=== PATIENT | female | born 1935 | race Caucasian/White ===

== ENCOUNTER 2017-06-12 18:04 | Emergency (ER) | payer OTHER ==
[~2017-06-12] VITALS: Ht 162.6 cm; Wt 90.3 kg
[~2017-06-12 18:04] MED LIST: ACCUPRIL20 MG PO; ACCUPRIL40 MG PO; ATORVASTATIN CA40 MG PO; BRILINTA90 MG PO; CATAPRES0.1 MG PO; CYMBALTA30 MG PO; DAILY VALUE1 EACH PO; Depakote PO; ELAVIL10 MG PO; Fish Oil PO; Flonase BOTH NARES; HYDROCHLOROTH12.5 M3 PO; KlonoPIN PO; LASIX20 MG PO; LEVAQUIN750 MG PO; LEVOTHYROXINE50 MCG PO; LEVOTHYROXINE88 MCG PO; LISINOPRIL5 MG PO; LO-DOSE ASPIRIN81 M1 PO; LOPRESSOR25 MG PO; LORTAB 5-325 M1 EACH PO; LOSARTAN POTASS50 MG PO; MELOXICAM15 MG PO; MOBIC15 MG PO; MOBIC7.5 MG PO; NEURONTIN100 MG PO; NIFEDIAC CC60 MG PO; NIFEDIPINE ER60 MG PO; Normodyne,Trandate PO; OLEPTRO ER300 MG PO; OMEPRAZOLE20 MG PO; PRAVASTATIN SOD40 MG PO; PRILOSEC40 MG PO; Procardia XL,Adalat PO; ROPINIROLE HC0.25 MG PO; SENOKOT,SENN1 TABLET PO; ST. JOSEPH ASPI81 MG PO; STOOL SOFTENER100 M1 PO; VENLAFAXINE HC150 M1 PO; VITAMIN D31000 UNI2 PO; ZOLPIDEM TARTRA10 MG PO
[2017-06-12 18:56] LABS: BASOPHIL (%) 0.5 % (0-1); BASOPHIL COUNT 0.1 K/uL (0-0.1); EOSINOPHIL COUNT 0.4 K/uL (0-0.3); HEMATOCRIT 38.8 % (36.0-46.0); HEMOGLOBIN 12.5 G/DL (11.9-15.5); IMMATURE GRANULOCYTE (%) 0.5 % (0.0-0.7); LYMPHOCYTE (%) 23.9 % (15-42); LYMPHOCYTE COUNT 2.6 K/uL (1.0-2.8); MCH 31.2 PG (29.0-34.0); MCHC 32.2 G/DL (30.0-36.0); MCV 96.8 FL (83-99); MONOCYTE (%) 9.1 % (3-12); NEUTROPHIL COUNT 6.8 K/uL (1.8-6.4); PLATELET COUNT 251 K/uL (156-360); RBC DIS.WIDTH-CV 14.2 % (11.8-14.6); RBC DIS.WIDTH-SD 50.6 % (39-53); RED BLOOD COUNT 4.01 M/uL (3.80-5.20)
[2017-06-12 19:06] LABS: CHLORIDE 102 mEq/L (99-109); POTASSIUM 4.5 mEq/L (3.7-5.4); SODIUM 140 mEq/L (136-147)
[2017-06-12 19:08] LABS: GLUCOSE 123 mg/dL (70-99)
[2017-06-12 19:12] LABS: CREATININE 1.5 mg/dL (0.6-1.3); GFR ESTIMATE (CALCULATED) 35 mL/min/
[2017-06-12 19:13] LABS: UREA NITROGEN (BUN) 33 mg/dL (9-23)
[2017-06-12 20:00] VITALS: BP 117/69
== END 2017-06-12 20:09 | disposition home or self-care (01) ==
LOC: EME 18:04
PROVIDERS: Physician Assistant
DX: J06.9 Acute upper respiratory infection, unspecified (principal); K21.9 Gastro-esophageal reflux disease without esophagitis; I10 Essential (primary) hypertension; I25.2 Old myocardial infarction; Z87.891 Personal history of nicotine dependence; Z88.5 Allergy status to narcotic agent; Z88.6 Allergy status to analgesic agent; Z91.041 Radiographic dye allergy status
CPT/HCPCS: 71046; 80048; 85025; 94640; 99281; 99285

== ENCOUNTER 2017-06-16 09:06 | Day surgery (SDC) | payer OTHER ==
[~2017-06-16] VITALS: Ht 162.6 cm; Wt 89.8 kg
== END 2017-06-16 10:35 | disposition home or self-care (01) ==
LOC: PAIN 09:06 → SDC 09:45 → PAIN 09:45
DX: M53.3 Sacrococcygeal disorders, not elsewhere classified (principal); M46.1 Sacroiliitis, not elsewhere classified; M47.816 Spondylosis without myelopathy or radiculopathy, lumbar region; G89.29 Other chronic pain; I10 Essential (primary) hypertension; E78.5 Hyperlipidemia, unspecified; E03.9 Hypothyroidism, unspecified; Z87.891 Personal history of nicotine dependence; Z79.82 Long term (current) use of aspirin; Z95.5 Presence of coronary angioplasty implant and graft
CPT/HCPCS: J1030; J2250; S0020

== ENCOUNTER 2017-07-14 09:44 | Inpatient (IN) | payer OTHER ==
[~2017-07-14] VITALS: Ht 162.6 cm; Wt 91.0 kg
[2017-07-14 10:31] LABS: BASOPHIL (%) 0.7 % (0-1); BASOPHIL COUNT 0.1 K/uL (0-0.1); EOSINOPHIL (%) 4.1 % (0-5); EOSINOPHIL COUNT 0.4 K/uL (0-0.3); HEMOGLOBIN 12.6 G/DL (11.9-15.5); IMMATURE GRANULOCYTE (%) 0.3 % (0.0-0.7); LYMPHOCYTE (%) 30.5 % (15-42); LYMPHOCYTE COUNT 3.1 K/uL (1.0-2.8); MCH 31.3 PG (29.0-34.0); MCHC 33.2 G/DL (30.0-36.0); MCV 94.3 FL (83-99); MONOCYTE (%) 7.7 % (3-12); MONOCYTE COUNT 0.8 K/uL (0-0.8); NEUTROPHIL (%) 56.7 % (45-76); NEUTROPHIL COUNT 5.8 K/uL (1.8-6.4); PLATELET COUNT 245 K/uL (156-360); RBC DIS.WIDTH-CV 13.9 % (11.8-14.6); RBC DIS.WIDTH-SD 48.2 % (39-53); RED BLOOD COUNT 4.03 M/uL (3.80-5.20); WHITE BLOOD COUNT 10.2 K/uL (4.1-10.2)
[2017-07-14 10:39] LABS: AMYLASE 40 IU/L (1-118); CHLORIDE 107 mEq/L (99-109); INTER. NORMALIZED RATIO 1.1; POTASSIUM 4.7 mEq/L (3.7-5.4); SODIUM 142 mEq/L (136-147)
[2017-07-14 10:41] LABS: GLUCOSE 113 mg/dL (70-99); PTT 27.6 SEC (25-37)
[2017-07-14 10:44] LABS: SERUM ETHYL ALCOHOL < 10 mg/dL
[2017-07-14 10:45] LABS: CREATININE 1.5 mg/dL (0.6-1.3); GFR ESTIMATE (CALCULATED) 35 mL/min/
[2017-07-14 10:46] LABS: UREA NITROGEN (BUN) 36 mg/dL (9-23)
[2017-07-14 10:48] LABS: LIPASE 35 U/L (1.0-51.0)
[2017-07-14 10:52] LABS: TROP-I INTERPRETATION NEGATIVE; TROPONIN-I 0.03 ng/mL (0.0-0.30)
[2017-07-14] MEDS ORDERED: TRAZODONE HCL50 MG PO (11:44)
[2017-07-14] MEDS ORDERED: DULOXETINE HCL30 MG PO (11:44)
[2017-07-14] MEDS ORDERED: CALCITRIOL0.25 MCG PO (11:44)
[2017-07-14 12:47] LABS: APPEARANCE CLEAR ((CLEAR)); BILIRUBIN NEGATIVE; BLOOD NEGATIVE; COLOR YELLOW ((YELLOW)); GLUCOSE (STRIP) NEGATIVE; KETONES NEGATIVE; LEUKOCYTES TRACE; NITRITE NEGATIVE; PROTEIN (STRIP) NEGATIVE; SPECIFIC GRAVITY 1.019 (1.000-1.030); UROBILINOGEN 0.2 MG/DL (0.2-1.0)
[2017-07-14 12:50] LABS: BACTERIA NONE SEEN /HPF; EPITHELIAL CELLS RARE /HPF; MUCUS NONE SEEN /LPF; RED BLOOD CELLS 0-5 /HPF (0-5); UCUL ADDED? NO; WHITE BLOOD CELLS 0-5 /HPF (0-5)
[2017-07-14 12:58] LABS: HEMATOCRIT 37.7 % (36.0-46.0); HEMOGLOBIN 12.8 G/DL (11.9-15.5); MCH 31.9 PG (29.0-34.0); PLATELET COUNT 246 K/uL (156-360); RBC DIS.WIDTH-CV 13.9 % (11.8-14.6); RBC DIS.WIDTH-SD 48.5 % (39-53); RED BLOOD COUNT 4.01 M/uL (3.80-5.20); WHITE BLOOD COUNT 11.4 K/uL (4.1-10.2)
[2017-07-14 13:09] LABS: ALBUMIN 3.8 g/dL (3.2-4.8); CHLORIDE 107 mEq/L (99-109); POTASSIUM 4.4 mEq/L (3.7-5.4); SODIUM 140 mEq/L (136-147)
[2017-07-14 13:11] LABS: GLUCOSE 106 mg/dL (70-99); TOTAL PROTEIN 7.3 g/dL (6.4-8.3)
[2017-07-14 13:12] LABS: AMPHETAMINE NEGATIVE (500 ng/mL); BARBITURATES NEGATIVE (200 ng/mL); BENZODIAZEPINES NEGATIVE (150 ng/mL); BUPRENORPHINE NEGATIVE (10 ng/mL); COCAINE NEGATIVE (150 ng/mL); METHADONE NEGATIVE (200 ng/mL); METHAMPHETAMINE NEGATIVE (500 ng/mL); OPIATES (MORPHINE) NEGATIVE (100 ng/mL); OXYCODONE NEGATIVE (100 ng/mL); PHENCYCLIDINE NEGATIVE (25 ng/mL); PROPOXYPHENE NEGATIVE (300 ng/mL); THC CANNABINOIDS NEGATIVE (50 ng/mL); TRICYCLIC ANTIDEPRESSANTS NEGATIVE (300 ng/mL)
[2017-07-14 13:13] LABS: TOTAL BILIRUBIN 0.6 mg/dL (0.0-1.0)
[2017-07-14 13:14] LABS: ALKALINE PHOSPHATASE 44 IU/L (3-129)
[2017-07-14 13:15] LABS: CREATININE 1.4 mg/dL (0.6-1.3); GFR ESTIMATE (CALCULATED) 38 mL/min/
[2017-07-14 13:16] LABS: AST (GOT) 21 IU/L (2-34); UREA NITROGEN (BUN) 35 mg/dL (9-23)
[2017-07-14 13:18] LABS: ALT (GPT) 16 IU/L (3-49)
[2017-07-14 13:19] LABS: THYROTROPIN (TSH) 1.2 MIU/L (0.4-5.5)
[2017-07-14 13:23] LABS: TROP-I INTERPRETATION NEGATIVE; TROPONIN-I 0.03 ng/mL (0.0-0.30)
[2017-07-14 13:47] LABS: HDL CHOLESTEROL 50 MG/DL (Desirable>=50); LDL CHOLESTEROL 64 mg/dL (Desirable<100); NON-HDL CHOLESTEROL 98 mg/dL (Desirable<160); TOTAL CHOLESTEROL 148 mg/dL (Desirable<200); TRIGLYCERIDES 172 MG/DL (Normal: <150)
[2017-07-14 13:58] LABS: FOLIC ACID (FOLATE) > 22.0 NG/ML (5.0-22.0)
[2017-07-14 14:45] LABS: HEMOGLOBIN A1c (GLYCOHEMOGLOB) 6.1 % (Below 5.7)
[2017-07-14 14:59] VITALS: BP 140/80
[2017-07-14 16:50] LABS: INTER. NORMALIZED RATIO 1.1
[2017-07-14 16:53] LABS: PTT 26.5 SEC (25-37)
[2017-07-14 20:00] VITALS: BP 144/68
[2017-07-14 22:22] LABS: TROP-I INTERPRETATION NEGATIVE; TROPONIN-I 0.04 ng/mL (0.0-0.30)
[2017-07-15 00:31] VITALS: BP 120/82
[2017-07-15 02:15] LABS: INTER. NORMALIZED RATIO 1.3
[2017-07-15 02:43] LABS: PTT ND SEC (25-37)
[2017-07-15 03:30] LABS: HEMATOCRIT 34.8 % (36.0-46.0); HEMOGLOBIN 11.7 G/DL (11.9-15.5); MCH 31.6 PG (29.0-34.0); MCHC 33.6 G/DL (30.0-36.0); MCV 94.1 FL (83-99); PLATELET COUNT 221 K/uL (156-360); WHITE BLOOD COUNT 11.6 K/uL (4.1-10.2)
[2017-07-15 03:39] VITALS: BP 160/82
[2017-07-15 08:00] VITALS: BP 168/88
[2017-07-15 12:03] VITALS: BP 144/86
[2017-07-15 16:00] VITALS: BP 132/80
[2017-07-15 20:00] VITALS: BP 106/64
[2017-07-16] VITALS: BP 104/68
[2017-07-16 04:00] VITALS: BP 118/72
[2017-07-16] MEDS ORDERED: ELIQUIS5 MG PO (07:32)
[2017-07-16] MEDS ORDERED: LOSARTAN POTASS25 MG PO (07:32)
[2017-07-16] MEDS ORDERED: LOPRESSOR50 MG PO (07:32)
[2017-07-16 07:36] VITALS: BP 120/70
== END 2017-07-16 10:22 | disposition home health service (06) | DRG 72 ==
LOC: EME 09:44 → EDOF 11:49 → 5SOUTH 11:49 → ENRESERV 11:51 → CANRESERV 11:51 → ENRESERV 12:35 → CANRESERV 12:41 → ENRESERV 12:41 → 5SOUTH 14:36
PROVIDERS: Emergency Medicine; Internal Medicine
DX: G93.40 Encephalopathy, unspecified (principal); I48.91 Unspecified atrial fibrillation; I10 Essential (primary) hypertension; D72.829 Elevated white blood cell count, unspecified; E03.9 Hypothyroidism, unspecified; I12.9 Hypertensive chronic kidney disease with stage 1 through stage 4 chronic kidney disease, or unspecified chronic kidney disease; N18.3 Chronic kidney disease, stage 3 (moderate); E78.5 Hyperlipidemia, unspecified; I25.10 Atherosclerotic heart disease of native coronary artery without angina pectoris; E66.9 Obesity, unspecified; Z68.34 Body mass index [BMI] 34.0-34.9, adult; R41.0 Disorientation, unspecified; R51 Headache; Z87.891 Personal history of nicotine dependence; Z79.899 Other long term (current) drug therapy; R29.702 NIHSS score 2; G89.29 Other chronic pain; Z79.82 Long term (current) use of aspirin; Z86.73 Personal history of transient ischemic attack (TIA), and cerebral infarction without residual deficits; Z95.5 Presence of coronary angioplasty implant and graft
CPT/HCPCS: 70450; 70551; 71045; 80048; 80053; 80061; 81003; 82140; 82150; 82607; 82746; 82948; 83036; 83690; 84443; 84484; 85025; 85027; 85610; 85730; 86850; 86900; 86901; 92507 GN; 92523 GN; 93005; 93306; 93880; 99281; 99285; G0480; J1644; J7030

== ENCOUNTER 2017-08-18 11:12 | Day surgery (SDC) | payer OTHER ==
[~2017-08-18] VITALS: Ht 162.6 cm; Wt 90.7 kg
[~2017-08-18 11:12] MED LIST changes: +CALCITRIOL0.25 MCG PO; +DULOXETINE HCL30 MG PO; +ELIQUIS5 MG PO; +LOPRESSOR50 MG PO; +LOSARTAN POTASS25 MG PO; +TRAZODONE HCL50 MG PO
[2017-08-18] MEDS ORDERED: OXYCONTIN10 MG PO (12:00)
== END 2017-08-18 13:00 | disposition home or self-care (01) ==
LOC: PAIN 11:12 → SDC 11:30 → PAIN 13:00
DX: M51.16 Intervertebral disc disorders with radiculopathy, lumbar region (principal); M48.061 Spinal stenosis, lumbar region without neurogenic claudication; M46.96 Unspecified inflammatory spondylopathy, lumbar region; G89.29 Other chronic pain; I10 Essential (primary) hypertension; E03.9 Hypothyroidism, unspecified; K21.9 Gastro-esophageal reflux disease without esophagitis; E66.09 Other obesity due to excess calories; Z68.34 Body mass index [BMI] 34.0-34.9, adult; I48.91 Unspecified atrial fibrillation; Z87.891 Personal history of nicotine dependence; Z79.82 Long term (current) use of aspirin; Z79.891 Long term (current) use of opiate analgesic; Z79.01 Long term (current) use of anticoagulants
CPT/HCPCS: J1100; J2250

== ENCOUNTER 2017-09-03 07:06 | Inpatient (IN) | payer OTHER ==
[~2017-09-03] VITALS: Ht 165.1 cm; Wt 95.9 kg
[~2017-09-03 07:06] MED LIST changes: +OXYCONTIN10 MG PO
[2017-09-03 07:53] LABS: HEMATOCRIT 34.4 % (36.0-46.0); HEMOGLOBIN 11.5 G/DL (11.9-15.5); MCH 31.4 PG (29.0-34.0); MCHC 33.4 G/DL (30.0-36.0); PLATELET COUNT 231 K/uL (156-360); RBC DIS.WIDTH-CV 13.8 % (11.8-14.6); RBC DIS.WIDTH-SD 46.8 % (39-53); RED BLOOD COUNT 3.66 M/uL (3.80-5.20); WHITE BLOOD COUNT 15.8 K/uL (4.1-10.2)
[2017-09-03 08:28] LABS: ALBUMIN 3.6 G/DL (3.2-4.8); ALKALINE PHOSPHATASE 52 IU/L (3-129); ALT (GPT) 16 IU/L (3-49); AST (GOT) 18 IU/L (2-34); CHLORIDE 104 MEQ/L (99-109); CREATININE 1.3 MG/DL (0.6-1.3); GFR ESTIMATE (CALCULATED) 42 mL/min/; GLUCOSE 126 mg/dL (70-99); LIPASE 30 U/L (1.0-51.0); POTASSIUM 4.1 MEQ/L (3.7-5.4); SODIUM 139 MEQ/L (136-147); TOTAL BILIRUBIN 0.8 MG/DL (0.0-1.0); TOTAL PROTEIN 6.9 G/DL (6.4-8.3); UREA NITROGEN (BUN) 28 mg/dL (9-23)
[2017-09-03 10:04] LABS: APPEARANCE CLEAR ((CLEAR)); BILIRUBIN NEGATIVE; BLOOD NEGATIVE; COLOR YELLOW ((YELLOW)); GLUCOSE (STRIP) NEGATIVE; KETONES NEGATIVE; LEUKOCYTES SMALL; NITRITE NEGATIVE; PROTEIN (STRIP) NEGATIVE; SPECIFIC GRAVITY 1.019 (1.000-1.030); UROBILINOGEN 0.2 MG/DL (0.2-1.0)
[2017-09-03] MEDS ORDERED: HYDROCODON-ACE1 EAC7 PO (10:11)
[2017-09-03] MEDS ORDERED: LO-DOSE ASPIRIN81 M1 PO (10:12)
[2017-09-03] MEDS ORDERED: BENZONATATE200 MG PO (10:13)
[2017-09-03] MEDS ORDERED: LORATADINE10 M2 PO (10:16)
[2017-09-03] MEDS ORDERED: COZAAR25 MG PO (10:16)
[2017-09-03 10:48] LABS: BACTERIA NONE SEEN /HPF; EPITHELIAL CELLS 3+ /HPF; MUCUS TRACE /LPF; RED BLOOD CELLS 0-5 /HPF (0-5); UCUL ADDED? YES
[2017-09-03 12:28] VITALS: BP 146/68
[2017-09-03 16:44] VITALS: BP 145/80
[2017-09-03 19:40] VITALS: BP 137/67
[2017-09-03 23:24] VITALS: BP 123/57
[2017-09-04 03:39] VITALS: BP 117/63
[2017-09-04 06:35] LABS: HEMATOCRIT 31.7 % (36.0-46.0); MCH 31.2 PG (29.0-34.0); MCHC 31.5 G/DL (30.0-36.0); PLATELET COUNT 191 K/uL (156-360); RBC DIS.WIDTH-CV 13.9 % (11.8-14.6); RBC DIS.WIDTH-SD 50.6 % (39-53); RED BLOOD COUNT 3.21 M/uL (3.80-5.20); WHITE BLOOD COUNT 17.8 K/uL (4.1-10.2)
[2017-09-04 06:41] LABS: MCV 98.8 FL (83-99)
[2017-09-04 07:00] LABS: CHLORIDE 109 MEQ/L (99-109); CREATININE 1.3 MG/DL (0.6-1.3); GFR ESTIMATE (CALCULATED) 42 mL/min/; GLUCOSE 122 mg/dL (70-99); POTASSIUM 4.4 MEQ/L (3.7-5.4); SODIUM 141 MEQ/L (136-147); UREA NITROGEN (BUN) 23 mg/dL (9-23)
[2017-09-04 07:41] VITALS: BP 124/62
[2017-09-04 11:47] VITALS: BP 114/56
[2017-09-04 16:26] VITALS: BP 114/76
[2017-09-04 19:54] VITALS: BP 112/63
[2017-09-05] VITALS (7 sets, daily range): BP systolic 106–162; BP diastolic 53–87
[2017-09-05 06:23] LABS: BASOPHIL (%) 0.3 % (0-1); BASOPHIL COUNT 0.1 K/uL (0-0.1); EOSINOPHIL (%) 0.8 % (0-5); EOSINOPHIL COUNT 0.1 K/uL (0-0.3); HEMATOCRIT 29.9 % (36.0-46.0); HEMOGLOBIN 9.2 G/DL (11.9-15.5); IMMATURE GRANULOCYTE (%) 0.5 % (0.0-0.7); LYMPHOCYTE (%) 13.9 % (15-42); LYMPHOCYTE COUNT 2.2 K/uL (1.0-2.8); MCH 30.4 PG (29.0-34.0); MCHC 30.8 G/DL (30.0-36.0); MCV 98.7 FL (83-99); MONOCYTE COUNT 0.9 K/uL (0-0.8); NEUTROPHIL (%) 78.5 % (45-76); NEUTROPHIL COUNT 12.3 K/uL (1.8-6.4); PLATELET COUNT 177 K/uL (156-360); RBC DIS.WIDTH-CV 13.8 % (11.8-14.6); RBC DIS.WIDTH-SD 49.5 % (39-53); RED BLOOD COUNT 3.03 M/uL (3.80-5.20); WHITE BLOOD COUNT 15.7 K/uL (4.1-10.2)
[2017-09-05 06:46] LABS: CHLORIDE 112 MEQ/L (99-109); CREATININE 1.3 MG/DL (0.6-1.3); GFR ESTIMATE (CALCULATED) 42 mL/min/; GLUCOSE 142 mg/dL (70-99); POTASSIUM 4.2 MEQ/L (3.7-5.4); SODIUM 143 MEQ/L (136-147); UREA NITROGEN (BUN) 21 mg/dL (9-23)
[2017-09-06 01:57] LABS: BASOPHIL (%) 0.2 % (0-1); EOSINOPHIL (%) 0.6 % (0-5); EOSINOPHIL COUNT 0.1 K/uL (0-0.3); HEMATOCRIT 31.7 % (36.0-46.0); IMMATURE GRANULOCYTE (%) 0.6 % (0.0-0.7); LYMPHOCYTE (%) 8.3 % (15-42); LYMPHOCYTE COUNT 1.2 K/uL (1.0-2.8); MCH 30.8 PG (29.0-34.0); MCHC 31.5 G/DL (30.0-36.0); MCV 97.5 FL (83-99); MONOCYTE COUNT 0.9 K/uL (0-0.8); NEUTROPHIL (%) 84.3 % (45-76); NEUTROPHIL COUNT 12.5 K/uL (1.8-6.4); PLATELET COUNT 195 K/uL (156-360); RBC DIS.WIDTH-CV 14.1 % (11.8-14.6); RBC DIS.WIDTH-SD 49.9 % (39-53); RED BLOOD COUNT 3.25 M/uL (3.80-5.20); WHITE BLOOD COUNT 14.9 K/uL (4.1-10.2)
[2017-09-06 02:12] LABS: CHLORIDE 114 mEq/L (99-109); POTASSIUM 4.2 mEq/L (3.7-5.4); SODIUM 144 mEq/L (136-147)
[2017-09-06 02:13] LABS: GLUCOSE 128 mg/dL (70-99)
[2017-09-06 02:17] LABS: CREATININE 1.4 mg/dL (0.6-1.3); GFR ESTIMATE (CALCULATED) 38 mL/min/
[2017-09-06 02:18] LABS: UREA NITROGEN (BUN) 21 mg/dL (9-23)
[2017-09-06 03:24] VITALS: BP 135/78
[2017-09-06 07:41] VITALS: BP 138/77
[2017-09-06 15:27] LABS: INTER. NORMALIZED RATIO 2.3
[2017-09-06 15:30] LABS: PTT 96.2 SEC (25-37)
[2017-09-06 15:38] VITALS: BP 134/68
[2017-09-06 19:23] VITALS: BP 149/71
[2017-09-06 22:19] LABS: INTER. NORMALIZED RATIO 2.2
[2017-09-06 22:29] LABS: PTT 69.8 SEC (25-37)
[2017-09-06 23:08] VITALS: BP 135/65
[2017-09-07] VITALS (8 sets, daily range): BP systolic 129–192; BP diastolic 68–116
[2017-09-07 05:44] LABS: BASOPHIL (%) 0.4 % (0-1); BASOPHIL COUNT 0.1 K/uL (0-0.1); EOSINOPHIL (%) 2.6 % (0-5); EOSINOPHIL COUNT 0.4 K/uL (0-0.3); HEMATOCRIT 29.9 % (36.0-46.0); HEMOGLOBIN 9.6 G/DL (11.9-15.5); IMMATURE GRANULOCYTE (%) 0.6 % (0.0-0.7); LYMPHOCYTE (%) 19.3 % (15-42); MCHC 32.1 G/DL (30.0-36.0); MCV 96.5 FL (83-99); MONOCYTE (%) 7.1 % (3-12); MONOCYTE COUNT 1.1 K/uL (0-0.8); PLATELET COUNT 164 K/uL (156-360); RBC DIS.WIDTH-CV 14.3 % (11.8-14.6); RBC DIS.WIDTH-SD 50.5 % (39-53); WHITE BLOOD COUNT 15.7 K/uL (4.1-10.2)
[2017-09-07 05:49] LABS: CHLORIDE 118 mEq/L (99-109); POTASSIUM 4.1 mEq/L (3.7-5.4); SODIUM 147 mEq/L (136-147)
[2017-09-07 05:51] LABS: GLUCOSE 121 mg/dL (70-99)
[2017-09-07 05:55] LABS: CREATININE 1.3 mg/dL (0.6-1.3); GFR ESTIMATE (CALCULATED) 42 mL/min/
[2017-09-07 05:56] LABS: UREA NITROGEN (BUN) 26 mg/dL (9-23)
[2017-09-07 15:10] LABS: C-REACTIVE PROTEIN 251.3 MG/L (0-10)
[2017-09-07 16:04] LABS: THYROTROPIN (TSH) 1.8 MIU/L (0.4-5.5)
[2017-09-08 04:13] VITALS: BP 178/86
[2017-09-08 06:09] LABS: BASOPHIL (%) 0.5 % (0-1); BASOPHIL COUNT 0.1 K/uL (0-0.1); EOSINOPHIL (%) 1.9 % (0-5); EOSINOPHIL COUNT 0.3 K/uL (0-0.3); HEMATOCRIT 28.2 % (36.0-46.0); HEMOGLOBIN 8.8 G/DL (11.9-15.5); IMMATURE GRANULOCYTE (%) 0.7 % (0.0-0.7); LYMPHOCYTE (%) 12.8 % (15-42); MCH 30.1 PG (29.0-34.0); MCHC 31.2 G/DL (30.0-36.0); MCV 96.6 FL (83-99); MONOCYTE (%) 7.4 % (3-12); MONOCYTE COUNT 1.2 K/uL (0-0.8); NEUTROPHIL (%) 76.7 % (45-76); NEUTROPHIL COUNT 11.9 K/uL (1.8-6.4); PLATELET COUNT 121 K/uL (156-360); RBC DIS.WIDTH-CV 14.4 % (11.8-14.6); RBC DIS.WIDTH-SD 50.8 % (39-53); RED BLOOD COUNT 2.92 M/uL (3.80-5.20); WHITE BLOOD COUNT 15.5 K/uL (4.1-10.2)
[2017-09-08 07:22] LABS: ALBUMIN 2.5 G/DL (3.2-4.8); ALT (GPT) 8 IU/L (3-49); AST (GOT) 13 IU/L (2-34); CHLORIDE 117 MEQ/L (99-109); GLUCOSE 131 mg/dL (70-99); SODIUM 145 MEQ/L (136-147); TOTAL BILIRUBIN 0.9 MG/DL (0.0-1.0); UREA NITROGEN (BUN) 23 mg/dL (9-23)
[2017-09-08 07:29] LABS: CREATININE 0.8 MG/DL (0.6-1.3); GFR ESTIMATE (CALCULATED) > 59 mL/min/; TOTAL PROTEIN 5.3 G/DL (6.4-8.3)
[2017-09-08 07:30] LABS: ALKALINE PHOSPHATASE 159 IU/L (3-129)
[2017-09-08 08:12] VITALS: BP 172/69
[2017-09-08 11:45] VITALS: BP 145/88
[2017-09-08 14:04] LABS: CHLORIDE 115 MEQ/L (99-109); CREATININE 1.1 MG/DL (0.6-1.3); GFR ESTIMATE (CALCULATED) 51 mL/min/; GLUCOSE 118 mg/dL (70-99); POTASSIUM 3.9 MEQ/L (3.7-5.4); SODIUM 142 MEQ/L (136-147); UREA NITROGEN (BUN) 22 mg/dL (9-23)
[2017-09-08 18:27] LABS: HEMATOCRIT 27.3 % (36.0-46.0); HEMOGLOBIN 8.9 G/DL (11.9-15.5); MCHC 32.6 G/DL (30.0-36.0); MCV 95.1 FL (83-99); PLATELET COUNT 136 K/uL (156-360); RBC DIS.WIDTH-CV 14.4 % (11.8-14.6); RBC DIS.WIDTH-SD 49.7 % (39-53); RED BLOOD COUNT 2.87 M/uL (3.80-5.20); WHITE BLOOD COUNT 16.6 K/uL (4.1-10.2)
[2017-09-08 18:33] LABS: INTER. NORMALIZED RATIO 1.5
[2017-09-08 18:40] LABS: CHLORIDE 118 mEq/L (99-109); POTASSIUM 4.1 mEq/L (3.7-5.4); SODIUM 144 mEq/L (136-147)
[2017-09-08 18:42] LABS: GLUCOSE 123 mg/dL (70-99); PTT 27.3 SEC (25-37)
[2017-09-08 18:46] LABS: CREATININE 1.4 mg/dL (0.6-1.3); GFR ESTIMATE (CALCULATED) 38 mL/min/
[2017-09-08 18:47] LABS: UREA NITROGEN (BUN) 24 mg/dL (9-23)
[2017-09-08 20:15] VITALS: BP 141/86
[2017-09-09] VITALS (8 sets, daily range): BP systolic 139–184; BP diastolic 65–94
[2017-09-09 06:26] LABS: BASOPHIL (%) 0.4 % (0-1); BASOPHIL COUNT 0.1 K/uL (0-0.1); EOSINOPHIL (%) 0.5 % (0-5); EOSINOPHIL COUNT 0.1 K/uL (0-0.3); HEMATOCRIT 28.4 % (36.0-46.0); HEMOGLOBIN 9.1 G/DL (11.9-15.5); IMMATURE GRANULOCYTE (%) 1.1 % (0.0-0.7); LYMPHOCYTE COUNT 2.1 K/uL (1.0-2.8); MCV 96.6 FL (83-99); MONOCYTE (%) 10.3 % (3-12); MONOCYTE COUNT 1.4 K/uL (0-0.8); NEUTROPHIL (%) 72.7 % (45-76); NEUTROPHIL COUNT 10.2 K/uL (1.8-6.4); PLATELET COUNT 177 K/uL (156-360); RBC DIS.WIDTH-CV 14.4 % (11.8-14.6); RBC DIS.WIDTH-SD 50.4 % (39-53); RED BLOOD COUNT 2.94 M/uL (3.80-5.20)
[2017-09-09 13:01] LABS: CHLORIDE 112 MEQ/L (99-109); CREATININE 1.1 MG/DL (0.6-1.3); GFR ESTIMATE (CALCULATED) 51 mL/min/; GLUCOSE 106 mg/dL (70-99); POTASSIUM 4.4 MEQ/L (3.7-5.4); SODIUM 142 MEQ/L (136-147); UREA NITROGEN (BUN) 24 mg/dL (9-23)
[2017-09-09 14:37] LABS: BICARBONATE 16.3 mEq/L (22-26); CARBOXY HGB 1.1 % (0-5); COMMENTS - BLOOD GASES A+C+; DEVICE RA; FI02 21 %; METHEMOGLOBIN 0.4 % (0-1.5); PCO2 27 mm Hg (35-45); PO2 69 mm Hg (80-100); SITE LR; TOTAL RESP RATE 22 resp/min; pH 7.39 (7.35-7.45)
[2017-09-09 14:38] LABS: BASE EXCESS -7.6 mEq/L (-3 to +3)
[2017-09-10 04:46] VITALS: BP 172/88
[2017-09-10 06:16] LABS: BASOPHIL (%) 0.4 % (0-1); BASOPHIL COUNT 0.1 K/uL (0-0.1); EOSINOPHIL (%) 0.4 % (0-5); EOSINOPHIL COUNT 0.1 K/uL (0-0.3); HEMATOCRIT 25.3 % (36.0-46.0); HEMOGLOBIN 8.3 G/DL (11.9-15.5); IMMATURE GRANULOCYTE (%) 2.3 % (0.0-0.7); LYMPHOCYTE (%) 15.9 % (15-42); LYMPHOCYTE COUNT 2.3 K/uL (1.0-2.8); MCH 31.1 PG (29.0-34.0); MCHC 32.8 G/DL (30.0-36.0); MCV 94.8 FL (83-99); MONOCYTE (%) 12.2 % (3-12); MONOCYTE COUNT 1.8 K/uL (0-0.8); NEUTROPHIL (%) 68.8 % (45-76); NEUTROPHIL COUNT 10.1 K/uL (1.8-6.4); NRBC (%) 0.3 /100 WBC (0-0); PLATELET COUNT 192 K/uL (156-360); RBC DIS.WIDTH-CV 14.2 % (11.8-14.6); RBC DIS.WIDTH-SD 48.8 % (39-53); RED BLOOD COUNT 2.67 M/uL (3.80-5.20); WHITE BLOOD COUNT 14.7 K/uL (4.1-10.2)
[2017-09-10 06:38] LABS: CHLORIDE 112 MEQ/L (99-109); CREATININE 1.2 MG/DL (0.6-1.3); GFR ESTIMATE (CALCULATED) 46 mL/min/; GLUCOSE 112 mg/dL (70-99); POTASSIUM 3.8 MEQ/L (3.7-5.4); SODIUM 141 MEQ/L (136-147); UREA NITROGEN (BUN) 25 mg/dL (9-23)
[2017-09-10 07:54] VITALS: BP 135/83
[2017-09-10 10:58] VITALS: BP 144/85
[2017-09-10 12:50] LABS: HEMATOCRIT 29.4 % (36.0-46.0); HEMOGLOBIN 9.8 G/DL (11.9-15.5); MCV 93.9 FL (83-99)
[2017-09-10 16:05] VITALS: BP 144/77
[2017-09-10 19:15] VITALS: BP 136/82
[2017-09-10 23:29] VITALS: BP 136/76
[2017-09-11] VITALS (7 sets, daily range): BP systolic 89–195; BP diastolic 64–93
[2017-09-11 06:39] LABS: HEMATOCRIT 26.7 % (36.0-46.0); HEMOGLOBIN 8.6 G/DL (11.9-15.5); MCH 30.6 PG (29.0-34.0); MCHC 32.2 G/DL (30.0-36.0); NRBC (%) 0.2 /100 WBC (0-0); RBC DIS.WIDTH-CV 14.4 % (11.8-14.6); RBC DIS.WIDTH-SD 49.7 % (39-53); RED BLOOD COUNT 2.81 M/uL (3.80-5.20); WHITE BLOOD COUNT 16.3 K/uL (4.1-10.2)
[2017-09-11 06:42] LABS: PLATELET COUNT 255 K/uL (156-360)
[2017-09-11 07:04] LABS: BASOPHIL (%) 0.6 % (0-1); BASOPHIL COUNT 0.1 K/uL (0-0.1); EOSINOPHIL (%) 2.9 % (0-5); EOSINOPHIL COUNT 0.5 K/uL (0-0.3); IMMATURE GRANULOCYTE (%) 2.4 % (0.0-0.7); LYMPHOCYTE (%) 17.9 % (15-42); LYMPHOCYTE COUNT 2.9 K/uL (1.0-2.8); MONOCYTE (%) 9.6 % (3-12); MONOCYTE COUNT 1.6 K/uL (0-0.8); NEUTROPHIL (%) 66.6 % (45-76); NEUTROPHIL COUNT 10.9 K/uL (1.8-6.4)
[2017-09-12 04:36] VITALS: BP 191/94
[2017-09-12 05:55] VITALS: BP 162/77
[2017-09-12 06:12] LABS: HEMATOCRIT 25.2 % (36.0-46.0); HEMOGLOBIN 8.4 G/DL (11.9-15.5); MCH 30.9 PG (29.0-34.0); MCHC 33.3 G/DL (30.0-36.0); MCV 92.6 FL (83-99); NRBC (%) 0.5 /100 WBC (0-0); PLATELET COUNT 276 K/uL (156-360); RBC DIS.WIDTH-CV 14.3 % (11.8-14.6); RBC DIS.WIDTH-SD 47.8 % (39-53); RED BLOOD COUNT 2.72 M/uL (3.80-5.20); WHITE BLOOD COUNT 15.4 K/uL (4.1-10.2)
[2017-09-12 08:04] VITALS: BP 183/107
[2017-09-12 12:16] VITALS: BP 167/75
[2017-09-12 16:16] VITALS: BP 184/86
[2017-09-12 23:30] VITALS: BP 159/77
[2017-09-13 08:07] VITALS: BP 162/70
[2017-09-13 08:27] LABS: HEMATOCRIT 27.8 % (36.0-46.0); HEMOGLOBIN 9.3 G/DL (11.9-15.5); MCH 31.4 PG (29.0-34.0); MCHC 33.5 G/DL (30.0-36.0); MCV 93.9 FL (83-99); NRBC (%) 0.5 /100 WBC (0-0); PLATELET COUNT 344 K/uL (156-360); RBC DIS.WIDTH-CV 14.6 % (11.8-14.6); RBC DIS.WIDTH-SD 48.6 % (39-53); RED BLOOD COUNT 2.96 M/uL (3.80-5.20); WHITE BLOOD COUNT 17.6 K/uL (4.1-10.2)
[2017-09-13 09:24] LABS: CHLORIDE 108 mEq/L (99-109); POTASSIUM 3.8 mEq/L (3.7-5.4); SODIUM 142 mEq/L (136-147)
[2017-09-13 09:25] LABS: GLUCOSE 102 mg/dL (70-99)
[2017-09-13 09:29] LABS: GFR ESTIMATE (CALCULATED) 57 mL/min/
[2017-09-13 09:30] LABS: UREA NITROGEN (BUN) 18 mg/dL (9-23)
[2017-09-13 15:18] VITALS: BP 140/78
[2017-09-13 19:21] VITALS: BP 188/86
[2017-09-13 21:33] LABS: APPEARANCE SL.HAZY ((CLEAR)); BILIRUBIN NEGATIVE; BLOOD NEGATIVE; COLOR AMBER ((YELLOW)); GLUCOSE (STRIP) NEGATIVE; KETONES NEGATIVE; LEUKOCYTES NEGATIVE; NITRITE NEGATIVE; PROTEIN (STRIP) 100; SPECIFIC GRAVITY 1.029 (1.000-1.030)
[2017-09-13 21:46] LABS: BACTERIA NONE SEEN /HPF; EPITHELIAL CELLS 2+ /HPF; HYALINE CASTS 0-5 /LPF; MUCUS TRACE /LPF; RED BLOOD CELLS 0-5 /HPF (0-5); UCUL ADDED? NO; WHITE BLOOD CELLS 0-5 /HPF (0-5)
[2017-09-13 23:53] VITALS: BP 138/80
[2017-09-14 04:05] VITALS: BP 138/85
[2017-09-14 06:56] LABS: HEMATOCRIT 29.4 % (36.0-46.0); HEMOGLOBIN 9.4 G/DL (11.9-15.5); MCH 30.2 PG (29.0-34.0); MCV 94.5 FL (83-99); NRBC (%) 0.4 /100 WBC (0-0); PLATELET COUNT 348 K/uL (156-360); RBC DIS.WIDTH-CV 14.8 % (11.8-14.6); RED BLOOD COUNT 3.11 M/uL (3.80-5.20)
[2017-09-14 07:15] LABS: CHLORIDE 108 MEQ/L (99-109); GFR ESTIMATE (CALCULATED) 57 mL/min/; GLUCOSE 122 mg/dL (70-99); MAGNESIUM 1.9 mg/dl (1.3-2.7); POTASSIUM 3.5 MEQ/L (3.7-5.4); SODIUM 139 MEQ/L (136-147); UREA NITROGEN (BUN) 16 mg/dL (9-23)
[2017-09-14 07:44] VITALS: BP 135/86
[2017-09-14 10:18] VITALS: BP 164/79
[2017-09-14 15:41] VITALS: BP 130/80
[2017-09-14 19:29] VITALS: BP 134/88
[2017-09-14 23:23] VITALS: BP 160/84
[2017-09-15 07:27] LABS: CHLORIDE 107 MEQ/L (99-109); CREATININE 1.1 MG/DL (0.6-1.3); GFR ESTIMATE (CALCULATED) 51 mL/min/; GLUCOSE 99 mg/dL (70-99); POTASSIUM 3.9 MEQ/L (3.7-5.4); SODIUM 138 MEQ/L (136-147); UREA NITROGEN (BUN) 14 mg/dL (9-23)
[2017-09-15 08:31] VITALS: BP 178/93
[2017-09-15 09:32] VITALS: BP 128/71
[2017-09-15 11:27] VITALS: BP 138/74
[2017-09-15 16:38] VITALS: BP 129/74
[2017-09-15 19:50] VITALS: BP 138/76
[2017-09-15 23:27] VITALS: BP 197/97
[2017-09-16 04:16] VITALS: BP 148/83
[2017-09-16 07:56] VITALS: BP 136/92
[2017-09-16] MEDS ORDERED: LASIX20 MG PO (11:12)
[2017-09-16] MEDS ORDERED: K-DUR20 MEQ PO (11:13)
[2017-09-16 12:37] VITALS: BP 160/84
== END 2017-09-16 13:52 | disposition home health service (06) | DRG 330 ==
LOC: EME 07:06 → EDOF 09:37 → 3EAST 09:37 → ENRESERV 09:42 → EDOF 10:35 → ENRESERV 10:39 → EDOF 11:00 → ENRESERV 11:07 → 3EAST 11:43
PROVIDERS: Hospitalist; Internal Medicine; Physician Assistant; Physician Assistant Medical; Physician Assistant Surgical; Student in an Organized Health Care Education/Training Program; Surgery
DX: K57.20 Diverticulitis of large intestine with perforation and abscess without bleeding (principal); I48.2 Chronic atrial fibrillation; I48.1 Persistent atrial fibrillation; K56.7 Ileus, unspecified; I25.10 Atherosclerotic heart disease of native coronary artery without angina pectoris; I12.9 Hypertensive chronic kidney disease with stage 1 through stage 4 chronic kidney disease, or unspecified chronic kidney disease; N18.3 Chronic kidney disease, stage 3 (moderate); E03.9 Hypothyroidism, unspecified; D63.1 Anemia in chronic kidney disease; R33.9 Retention of urine, unspecified; R82.79 Other abnormal findings on microbiological examination of urine; R41.0 Disorientation, unspecified; R60.0 Localized edema; E78.5 Hyperlipidemia, unspecified; K21.9 Gastro-esophageal reflux disease without esophagitis; M19.072 Primary osteoarthritis, left ankle and foot; E66.9 Obesity, unspecified; Z68.35 Body mass index [BMI] 35.0-35.9, adult; Z66 Do not resuscitate; Z86.73 Personal history of transient ischemic attack (TIA), and cerebral infarction without residual deficits; Z87.440 Personal history of urinary (tract) infections; Z95.5 Presence of coronary angioplasty implant and graft; Z79.01 Long term (current) use of anticoagulants; Z79.82 Long term (current) use of aspirin; Z88.5 Allergy status to narcotic agent; Z91.041 Radiographic dye allergy status
CPT/HCPCS: 36600; 71045; 73630; 74176; 80048; 80048 91; 80053; 81003; 83605; 83690; 83735; 84443; 85014; 85018; 85025; 85027; 85610; 85730; 86140; 86850; 86900; 86901; 87040; 87086; 88307; 93005; 93970; 94799; 97530 GO; 97530 GP; 99281; 99284; J0131; J0360; J0744; J1170; J1644; J1940; J2405; J2543; J3010; J7030; J7040; J7042; J7050; P9047; S0028; S0030; S0074

== ENCOUNTER 2017-09-23 07:30 | Inpatient (IN) | payer OTHER ==
[~2017-09-23] VITALS: Ht 162.6 cm; Wt 91.0 kg
[~2017-09-23 07:30] MED LIST changes: +BENZONATATE200 MG PO; +COZAAR25 MG PO; +HYDROCODON-ACE1 EAC7 PO; +K-DUR20 MEQ PO; +LORATADINE10 M2 PO
[2017-09-23 08:52] LABS: BASOPHIL (%) 1.1 % (0-1); BASOPHIL COUNT 0.1 K/uL (0-0.1); EOSINOPHIL COUNT 0.4 K/uL (0-0.3); HEMATOCRIT 30.9 % (36.0-46.0); IMMATURE GRANULOCYTE (%) 0.6 % (0.0-0.7); LYMPHOCYTE (%) 23.3 % (15-42); LYMPHOCYTE COUNT 2.9 K/uL (1.0-2.8); MCH 30.6 PG (29.0-34.0); MCHC 32.4 G/DL (30.0-36.0); MCV 94.5 FL (83-99); MONOCYTE (%) 11.3 % (3-12); MONOCYTE COUNT 1.4 K/uL (0-0.8); NEUTROPHIL (%) 60.7 % (45-76); NEUTROPHIL COUNT 7.5 K/uL (1.8-6.4); RBC DIS.WIDTH-CV 14.9 % (11.8-14.6); RBC DIS.WIDTH-SD 51.2 % (39-53); RED BLOOD COUNT 3.27 M/uL (3.80-5.20); WHITE BLOOD COUNT 12.3 K/uL (4.1-10.2)
[2017-09-23 08:58] LABS: PLATELET COUNT 454 K/uL (156-360)
[2017-09-23 09:09] LABS: INTER. NORMALIZED RATIO 2.1
[2017-09-23 09:12] LABS: PTT 32.6 SEC (25-37)
[2017-09-23 09:21] LABS: TROP-I INTERPRETATION NEGATIVE; TROPONIN-I 0.04 ng/mL (0.0-0.30)
[2017-09-23 09:33] LABS: ALKALINE PHOSPHATASE 82 IU/L (3-129); ALT (GPT) 13 IU/L (3-49); AST (GOT) 20 IU/L (2-34); CHLORIDE 98 MEQ/L (99-109); CREATININE 1.1 MG/DL (0.6-1.3); GFR ESTIMATE (CALCULATED) 51 mL/min/; GLUCOSE 103 mg/dL (70-99); POTASSIUM 4.2 MEQ/L (3.7-5.4); SODIUM 138 MEQ/L (136-147); TOTAL BILIRUBIN 0.8 MG/DL (0.0-1.0); TOTAL PROTEIN 6.7 G/DL (6.4-8.3); UREA NITROGEN (BUN) 12 mg/dL (9-23)
[2017-09-23 09:51] LABS: APPEARANCE CLOUDY ((CLEAR)); BILIRUBIN NEGATIVE; BLOOD NEGATIVE; COLOR YELLOW ((YELLOW)); GLUCOSE (STRIP) NEGATIVE; KETONES NEGATIVE; LEUKOCYTES SMALL; NITRITE NEGATIVE; PROTEIN (STRIP) 30; SPECIFIC GRAVITY 1.014 (1.000-1.030); UROBILINOGEN 0.2 MG/DL (0.2-1.0)
[2017-09-23 10:14] LABS: RED BLOOD CELLS NONE SEEN /HPF (0-5); WHITE BLOOD CELLS 0-5 /HPF (0-5)
[2017-09-23 10:16] LABS: AMORPHOUS PHOSPHATE CRYSTALS 2+; BACTERIA 3+ /HPF; EPITHELIAL CELLS 2+ /HPF; MUCUS 1+ /LPF
[2017-09-23] MEDS ORDERED: FLONASE16 G1 BOTH NARES (11:32)
[2017-09-23] MEDS ORDERED: VENTOLIN HFA18 GM IH (11:35)
[2017-09-23] MEDS ORDERED: ATORVASTATIN CA40 MG PO (11:37)
[2017-09-23 13:03] VITALS: BP 192/109
[2017-09-23 14:51] LABS: TROP-I INTERPRETATION NEGATIVE; TROPONIN-I 0.05 ng/mL (0.0-0.30)
[2017-09-23 17:49] VITALS: BP 143/71
[2017-09-23 20:31] LABS: TROP-I INTERPRETATION NEGATIVE; TROPONIN-I 0.05 ng/mL (0.0-0.30)
[2017-09-23 21:07] VITALS: BP 172/75
[2017-09-23 23:22] VITALS: BP 148/77
[2017-09-24 04:19] VITALS: BP 165/85
[2017-09-24 05:38] LABS: HEMATOCRIT 27.9 % (36.0-46.0); MCHC 32.3 G/DL (30.0-36.0); PLATELET COUNT 411 K/uL (156-360); RBC DIS.WIDTH-CV 14.9 % (11.8-14.6); RBC DIS.WIDTH-SD 50.4 % (39-53); WHITE BLOOD COUNT 9.8 K/uL (4.1-10.2)
[2017-09-24 06:07] LABS: CHLORIDE 94 MEQ/L (99-109); GFR ESTIMATE (CALCULATED) 57 mL/min/; GLUCOSE 99 mg/dL (70-99); POTASSIUM 3.6 MEQ/L (3.7-5.4); SODIUM 135 MEQ/L (136-147); UREA NITROGEN (BUN) 12 mg/dL (9-23)
[2017-09-24 07:44] VITALS: BP 138/77
[2017-09-24 12:05] VITALS: BP 129/71
[2017-09-24 15:10] VITALS: BP 147/79
[2017-09-24 19:15] VITALS: BP 124/69
[2017-09-24 23:29] VITALS: BP 146/75
[2017-09-25 03:30] VITALS: BP 116/61
[2017-09-25 05:53] LABS: ABSOLUTE RETICULOCYTE CT. 0.11 M/uL (0.02-0.08); BASOPHIL (%) 1.3 % (0-1); BASOPHIL COUNT 0.1 K/uL (0-0.1); EOSINOPHIL COUNT 0.6 K/uL (0-0.3); HEMATOCRIT 28.6 % (36.0-46.0); HEMOGLOBIN 9.3 G/DL (11.9-15.5); IMMATURE GRANULOCYTE (%) 0.3 % (0.0-0.7); LYMPHOCYTE (%) 36.5 % (15-42); LYMPHOCYTE COUNT 3.2 K/uL (1.0-2.8); MCH 30.5 PG (29.0-34.0); MCHC 32.5 G/DL (30.0-36.0); MCV 93.8 FL (83-99); MONOCYTE (%) 12.9 % (3-12); MONOCYTE COUNT 1.1 K/uL (0-0.8); NEUTROPHIL COUNT 3.6 K/uL (1.8-6.4); PLATELET COUNT 364 K/uL (156-360); RBC DIS.WIDTH-CV 14.9 % (11.8-14.6); RBC DIS.WIDTH-SD 50.9 % (39-53); RED BLOOD COUNT 3.05 M/uL (3.80-5.20); RETIC HGB EQUIVALENT 28.6 (28-36); RETICULOCYTE COUNT 3.5 % (0.5-1.8); WHITE BLOOD COUNT 8.6 K/uL (4.1-10.2)
[2017-09-25 06:17] LABS: ALBUMIN 2.7 G/DL (3.2-4.8); ALKALINE PHOSPHATASE 69 IU/L (3-129); ALT (GPT) 12 IU/L (3-49); AST (GOT) 19 IU/L (2-34); CHLORIDE 98 MEQ/L (99-109); CREATININE 1.1 MG/DL (0.6-1.3); GFR ESTIMATE (CALCULATED) 51 mL/min/; GLUCOSE 95 mg/dL (70-99); POTASSIUM 3.7 MEQ/L (3.7-5.4); SODIUM 139 MEQ/L (136-147); TOTAL BILIRUBIN 0.7 MG/DL (0.0-1.0); UREA NITROGEN (BUN) 15 mg/dL (9-23)
[2017-09-25 06:48] LABS: IRON 23 MCG/DL (35-150); TRANSFERRIN (TIBC) 228.4 mg/dL (215-380); TRANSFERRIN SATUR. 10 % (20-55)
[2017-09-25 07:18] VITALS: BP 168/92
[2017-09-25 08:13] LABS: FOLIC ACID (FOLATE) > 22.0 NG/ML (5.0-22.0)
[2017-09-25 09:50] LABS: FERRITIN 63 NG/ML (10-291)
[2017-09-25] MEDS ORDERED: LOSARTAN POTASS50 MG PO (11:08)
[2017-09-25] MEDS ORDERED: LASIX20 MG PO (11:08)
[2017-09-25 11:39] VITALS: BP 158/88
== END 2017-09-25 12:10 | disposition home health service (06) | DRG 291 ==
LOC: EME 07:30 → EDOF 10:59 → ENRESERV 11:19 → 4EAST 12:13
PROVIDERS: Hospitalist; Internal Medicine; Nurse Practitioner Family
DX: I13.0 Hypertensive heart and chronic kidney disease with heart failure and stage 1 through stage 4 chronic kidney disease, or unspecified chronic kidney disease (principal); Z66 Do not resuscitate; I50.33 Acute on chronic diastolic (congestive) heart failure; R09.02 Hypoxemia; I27.20 Pulmonary hypertension, unspecified; I48.2 Chronic atrial fibrillation; E03.9 Hypothyroidism, unspecified; E78.5 Hyperlipidemia, unspecified; N18.3 Chronic kidney disease, stage 3 (moderate); I35.0 Nonrheumatic aortic (valve) stenosis; K21.9 Gastro-esophageal reflux disease without esophagitis; D63.1 Anemia in chronic kidney disease; I25.10 Atherosclerotic heart disease of native coronary artery without angina pectoris; Z95.5 Presence of coronary angioplasty implant and graft; Z79.82 Long term (current) use of aspirin; Z93.3 Colostomy status; Z79.899 Other long term (current) drug therapy; Z86.73 Personal history of transient ischemic attack (TIA), and cerebral infarction without residual deficits; Z79.01 Long term (current) use of anticoagulants; Z87.891 Personal history of nicotine dependence
CPT/HCPCS: 71046; 74176; 80048; 80053; 81003; 82607; 82728; 82746; 83540; 83605; 83880; 84466; 84484; 85025; 85027; 85046; 85610; 85730; 86850; 86900; 86901; 87040; 93005; 94799; 99281; 99285; J0360; J1940